=== PATIENT | female | born 1995 | race Caucasian/White ===

== ENCOUNTER 2024-07-08 20:52 | Emergency (ER) | payer BC, MEDICAID ==
[~2024-07-08] VITALS: Ht 160 cm; Wt 93.4 kg
[2024-07-08 21:40] VITALS: BP 122/75; PULSE 86; RESP 20; TEMP 99.1; O2SAT 97
== END 2024-07-08 23:49 | disposition left against medical advice (07) ==
LOC: ER 20:54
DX: R21 Rash and other nonspecific skin eruption (principal); Z53.21 Procedure and treatment not carried out due to patient leaving prior to being seen by health care provider